=== PATIENT | male | born 1935 | race Caucasian/White ===

== ENCOUNTER 2021-09-15 13:32 | Emergency (ER) | payer MEDICARE ==
[~2021-09-15] VITALS: Ht 172.7 cm; Wt 78.0 kg
[2021-09-15 15:45] LABS: BASOPHILS % 0.4 % (0.0-2.0); EOSINOPHILS % 1.2 % (0.0-5.0); HEMATOCRIT. 41.3 % (42.0-52.0); LYMPHOCYTES % 11.6 % (20.0-50.0); MEAN CORPUSCULAR HEMOGLOBIN 27.1 pg (28.0-32.0); MEAN PLATELET VOLUME 9.9 fl (7.4-10.4); MONOCYTES % 7.7 % (2.0-8.0); NEUTROPHILS % 79.1 % (40.0-76.0); PLATELET 252 x1000/uL (130-400); RED CELL DISTRIBUTION WIDTH 22.2 % (11.6-14.6)
[2021-09-15 15:55] LABS: CHLORIDE 108 mEq/L (98-107)
[2021-09-15] MEDS ORDERED: MORPHINE SULFATE 4 MG/ML CPJ (NOT FOR IM USE) IV STA (17:22)
[2021-09-15] MEDS ORDERED: ONDANSETRON HCL 4MG/2ML INJ IV STA (17:22)
[2021-09-15] MEDS ORDERED: SODIUM CHLORIDE 0.9% 1,000 ML IV ONE (17:30)
[2021-09-15 17:44] LABS: CLARITY URINE CLEAR (CLEAR); COLOR URINE DARK YELLOW (YELLOW); KETONES URINE 1+ (NEGATIVE); LEUKOCYTE ESTERASE URINE TRACE (NEGATIVE); NITRITE URINE NEGATIVE (NEGATIVE); OCCULT BLOOD URINE NEGATIVE (NEGATIVE); PROTEIN URINE TRACE (NEGATIVE); SPECIFIC GRAVITY URINE 1.023 (1.005-1.030)
[2021-09-15 18:25] LABS: PLATELET ESTIMATE NORMAL
[2021-09-16 02:00] VITALS: BP 141/81
== END 2021-09-16 03:25 | disposition short-term general hospital (02) ==
LOC: ER 13:32 → EDBEDREQ 17:31 → EDBEDREQTM 17:31 → ER 09-16 03:25 → CANBEDREQ 09-16 03:41
DX: R10.13 Epigastric pain (principal); K85.90 Acute pancreatitis without necrosis or infection, unspecified; F32.9 Major depressive disorder, single episode, unspecified; K21.9 Gastro-esophageal reflux disease without esophagitis; E03.9 Hypothyroidism, unspecified; Z20.822 Contact with and (suspected) exposure to COVID-19
CPT/HCPCS: 36415; 74176; 80053; 81003; 83690; 85025; 85610; 87426; 96361; 96374; 96375; 99285; C9803; J2270; J2405; J7030

== ENCOUNTER 2021-12-23 15:16 | Inpatient (IN) | payer OTHER, MEDICAID ==
[~2021-12-23] VITALS: Ht 172.7 cm; Wt 73.5 kg
[2021-12-23 20:42] LABS: BASOPHILS % 0.3 % (0.0-2.0); EOSINOPHILS % 0.1 % (0.0-5.0); LYMPHOCYTES % 18.9 % (20.0-50.0); MEAN CORPUSCULAR VOLUME 85.2 fL (80.0-94.0); MEAN PLATELET VOLUME 9.9 fl (7.4-10.4); MONOCYTES % 6.3 % (2.0-8.0); NEUTROPHILS % 74.4 % (40.0-76.0); PLATELET 223 x1000/uL (130-400); RED BLOOD CELL COUNT 4.81 mill/uL (4.7-6.1)
[2021-12-23 20:50] LABS: CHLORIDE 107 mEq/L (98-107)
[2021-12-23] MEDS ORDERED: CLONIDINE 0.1MG TABLET PO PRN (22:15)
[2021-12-23] MEDS ORDERED: ACETAMINOPHEN 325MG TABLET PO PRN (22:15)
[2021-12-23] MEDS ORDERED: ONDANSETRON HCL 4MG/2ML INJ IV PRN (22:15)
[2021-12-23] MEDS ORDERED: MORPHINE SULFATE 2 MG/ML CPJ (NOT FOR IM USE) IV PRN (22:15)
[2021-12-24] MEDS: FUROSEMIDE 40MG/4ML VIAL IV SCH ×3 (00:17→17:00)
[2021-12-24] MEDS: METOPROLOL TARTRATE 25MG TABLET PO SCH ×3 (00:19→17:00)
[2021-12-24 00:46] LABS: CLARITY URINE CLEAR (CLEAR); COLOR URINE YELLOW (YELLOW); KETONES URINE NEGATIVE (NEGATIVE); LEUKOCYTE ESTERASE URINE NEGATIVE (NEGATIVE); NITRITE URINE NEGATIVE (NEGATIVE); OCCULT BLOOD URINE NEGATIVE (NEGATIVE); PH URINE 7.5 (4.5-8.0); PROTEIN URINE NEGATIVE (NEGATIVE); SPECIFIC GRAVITY URINE 1.014 (1.005-1.030); UROBILINOGEN URINE 0.2 E.U./dL (0.2-1.0)
[2021-12-24 05:34] LABS: BASOPHILS % 0.6 % (0.0-2.0); EOSINOPHILS % 0.3 % (0.0-5.0); HEMATOCRIT. 36.7 % (42.0-52.0); LYMPHOCYTES % 23.5 % (20.0-50.0); MEAN CORPUSCULAR HEMOGLOBIN 26.9 pg (28.0-32.0); MEAN CORPUSCULAR VOLUME 82.1 fL (80.0-94.0); MONOCYTES % 7.5 % (2.0-8.0); NEUTROPHILS % 68.1 % (40.0-76.0); PLATELET 225 x1000/uL (130-400); RED BLOOD CELL COUNT 4.47 mill/uL (4.7-6.1); RED CELL DISTRIBUTION WIDTH 15.8 % (11.6-14.6)
[2021-12-24] MEDS ORDERED: DAPA10TA MT (05:45)
[2021-12-24] MEDS ORDERED: LEVO75TA7 MT (05:53)
[2021-12-24] MEDS ORDERED: OMEP20CA14 MT (05:53)
[2021-12-24] MEDS ORDERED: CITA10TA16 PO (05:53)
[2021-12-24] MEDS ORDERED: LISI20TA31 PO (05:53)
[2021-12-24] MEDS ORDERED: ATOR20TA65 PO (05:53)
[2021-12-24] MEDS ORDERED: FURO20TA4 PO (05:53)
[2021-12-24 05:54] VITALS: BP 157/76
[2021-12-24 05:55] LABS: PHOSPHORUS 4.4 mg/dL (2.5-4.9)
[2021-12-24 08:00] VITALS: BP 153/66
[2021-12-24] MEDS ORDERED: FOLIC ACID 1MG TABLET PO SCH (09:00)
[2021-12-24] MEDS ORDERED: LISINOPRIL 20MG TABLET PO SCH (09:00)
[2021-12-24] MEDS ORDERED: ENOXAPARIN 40MG/0.4ML SYR SUBCUT SCH (09:00)
[2021-12-24 12:00] VITALS: BP_SYST 131; BP_SYST 146; BP_DIAS 63; BP_DIAS 68
[2021-12-24 16:00] VITALS: BP 131/68
[2021-12-24 16:51] VITALS: BP 131/68
[2021-12-24] MEDS ORDERED: PROMETHAZINE HCL 25MG TABLET PO SCH (21:00)
== END 2021-12-24 18:33 | disposition home or self-care (01) | DRG 206 ==
LOC: ER 15:16 → 6WST 12-24 02:33
PROVIDERS: ADMIT Internal Medicine; ATTEND Internal Medicine
DX: M94.0 Chondrocostal junction syndrome [Tietze] (principal); I16.0 Hypertensive urgency; I10 Essential (primary) hypertension; Z20.822 Contact with and (suspected) exposure to COVID-19; E11.9 Type 2 diabetes mellitus without complications; E78.5 Hyperlipidemia, unspecified; E78.00 Pure hypercholesterolemia, unspecified; E05.90 Thyrotoxicosis, unspecified without thyrotoxic crisis or storm
CPT/HCPCS: 36415; 71045; 80048; 80053; 81003; 83735; 83880; 84100; 84484; 85025; 87426; 93005; 99285; C9803; J1650; J1940

== ENCOUNTER 2022-01-09 11:09 | Emergency (ER) | payer OTHER, MEDICAID ==
[~2022-01-09] VITALS: Ht 165.1 cm; Wt 77.0 kg
[~2022-01-09 11:09] MED LIST: ATOR20TA65 PO; CITA10TA16 PO; DAPA10TA MT; FURO20TA4 PO; LEVO75TA7 MT; LISI20TA31 PO; OMEP20CA14 MT
[2022-01-09 14:00] LABS: BASOPHILS % 0.5 % (0.0-2.0); EOSINOPHILS % 1.4 % (0.0-5.0); LYMPHOCYTES % 18.3 % (20.0-50.0); MEAN CORPUSCULAR HEMOGLOBIN 27.1 pg (28.0-32.0); MEAN CORPUSCULAR VOLUME 83.1 fL (80.0-94.0); MEAN PLATELET VOLUME 10.3 fl (7.4-10.4); MONOCYTES % 6.7 % (2.0-8.0); NEUTROPHILS % 73.1 % (40.0-76.0); PLATELET 233 x1000/uL (130-400); RED BLOOD CELL COUNT 4.82 mill/uL (4.7-6.1); RED CELL DISTRIBUTION WIDTH 16.8 % (11.6-14.6)
[2022-01-09 14:03] LABS: CHLORIDE 105 mEq/L (98-107)
[2022-01-09 22:00] VITALS: BP 156/73
== END 2022-01-09 22:30 | disposition short-term general hospital (02) ==
LOC: ER 12:20 → CANBEDREQ 01-10 08:47
DX: R07.89 Other chest pain (principal); E11.9 Type 2 diabetes mellitus without complications; E78.00 Pure hypercholesterolemia, unspecified; I10 Essential (primary) hypertension; Z79.899 Other long term (current) drug therapy; Z20.822 Contact with and (suspected) exposure to COVID-19
CPT/HCPCS: 36415; 71045; 80053; 83690; 83880; 84484; 85025; 87426; 93005; 99285; C9803